=== PATIENT | male | born 1995 | race Caucasian/White ===

== ENCOUNTER 2017-09-09 17:52 | Emergency (ER) | payer OTHER ==
[2017-09-09] MEDS: PERCOCET 5MG/325MG TAB PO (20:32)
[2017-09-09] MEDS: CYCLOBENZAPRINE 10 MG TAB PO (20:32)
== END 2017-09-09 21:39 | disposition home or self-care (01) ==
LOC: M ED 17:52
DX: S16.1XXA Strain of muscle, fascia and tendon at neck level, initial encounter (principal); X58.XXXA Exposure to other specified factors, initial encounter; Y92.89 Other specified places as the place of occurrence of the external cause; Z87.891 Personal history of nicotine dependence
CPT/HCPCS: 99283

== ENCOUNTER 2018-03-15 12:25 | Emergency (ER) | payer OTHER | END 2018-03-15 15:56 | disposition home or self-care (01) | LOC: M ED 12:25 | DX: L03.011 Cellulitis of right finger (principal); Z87.891 Personal history of nicotine dependence | CPT/HCPCS: 99282 ==